=== PATIENT | female | born 2000 | race Two or more races ===

== ENCOUNTER 2020-11-23 14:44 | Emergency (ER) | payer SELFPAY ==
[~2020-11-23] VITALS: Ht 157.5 cm; Wt 59.0 kg
[2020-11-23 14:47] VITALS: BP 127/75
--- NOTE | 2020-11-23 15:55 | NUR ---
PT SEEN AND EXAMINED BY JOEY MABRY.
[2020-11-23] MEDS ORDERED: BACI30OI9 TP (16:42)
[2020-11-23] MEDS ORDERED: ACET-2605 PO (16:42)
--- NOTE | 2020-11-23 16:48 | NUR ---
REYNA MANRIQUEZ AT BEDSIDE FOR L VELCRO SPLINT.
--- NOTE | 2020-11-23 16:49 | NUR ---
Patient discharged to home in stable condition. Written and verbal after care instructions given. Patient verbalizes understanding of instruction.
== END 2020-11-23 16:56 | disposition home or self-care (01) ==
LOC: ER 14:46
DX: S60.812A Abrasion of left wrist, initial encounter (principal); S10.81XA Abrasion of other specified part of neck, initial encounter; V49.59XA Passenger injured in collision with other motor vehicles in traffic accident, initial encounter; Y93.89 Activity, other specified; Y92.413 State road as the place of occurrence of the external cause; Y99.8 Other external cause status
CPT/HCPCS: 73110